=== PATIENT | female | born 1960 | race African-American/Black ===

== ENCOUNTER → 2016-07-14 | Outpatient (CLI) | payer OTHER, BC ==
[~2016-07-14] MED LIST: AMLODIPINE BESY10 MG PO; ANASTROZOLE1 MG; ARIMIDEX PO; ARIMIDEX1 MG PO; ASPIRIN325 PO; BEANO300 UNIT; CARVEDILOL12.5 MG PO; CEFUROXIME250 MG PO; COLACE 100 MG100 MG PO; COLACE100 MG PO; IMODIUM ADVANC1 EAC1 PO; LEVAQUIN 500 M500 M2 PO; LISINOPRIL20 MG PO; LISINOPRIL5 MG PO; NORCO 5-325 TA1 EACH PO; NORVASC 5 MG TAB5 MG PO; ONDANSETRON HCL4 M2 PO; PARICALCITOL2 MCG PO; POTASSIUM20; POTASSIUM20 PO; RENAL CAPS SOFTG1 MG; RENAL CAPS SOFTG1 MG PO; RENALTAB ZN PO; RENVELA800 MG; RENVELA800 MG PO; SENSIPAR 30 MG30 M1 PO; SENSIPAR60 MG; SENSIPAR60 MG PO; VITAMIN D; VITAMIN D400 UNI1 PO; ZEMPLAR1 MCG; ZEMPLAR1 MCG PO; ZESTRIL5 MG; ZINC50 M1; ZINC50 M1 PO; ZOFRAN 4 MG ORAL4 MG PO; ZOFRAN ODT4 MG PO
--- NOTE | ~2016-07-14 | 2DMMODE ---
[facility] [place] [address] 2 D/M-MODE ECHOCARDIOGRAM Name: STEFANIE HARDYFARRAH Room #: REG [facility]#: [id number] Admission: 07/14/16 Attend Phys: Estrada Maki MD Discharge: Date of : 56 Date of Service: 07/14/16 1511 Report #: [id number] THIS REPORT FOR: //name// APPROVED REPORT Study performed: 07/14/2016 13:59:41 EXAM: Comprehensive 2D, Doppler, and color-flow Echocardiogram Patient Location: Out-Patient Room #: Echo 2 Blood Pressure: 144/94 mmHg HR: 93 bpm Other Information Study Quality: Excellent Indications Cardiomyopathy Hypertension/HDD 2D Dimensions RVDd: 30.07 mm LVEF(%): 37.96 (>50%) IVSd: 8.50 (7-11mm) LVOT Diam: 18.39 (18-24mm) LVDd: 56.41 mm PWd: 7.56 (7-11mm) Ascending Ao: 33.62 (22-36mm) LVDs: 45.92 (25-40mm) Aortic Root: 27.05 mm IVC: 18.00 mm Martinez's LVEF: 37.96 % Volumes Left Atrial Volume (Systole) Single Plane 4CH: 87.23 mL Single Plane 2CH: 91.21 mL LA ESV Index: 67.00 mL/m2 Aortic Valve AoV Peak Jimenez.: 1.82 m/s AO Peak Gr.: 13.21 mmHg LVOT Max P.98 mmHg LVOT Max V: 1.00 m/s BRITTANY Vmax: 1.46 cm2 AI Vmax: 4.46 m/s AI Chippewa: 4.76 m/s2 [facility] [employer] [place] [place] [address] 2 D/M-MODE ECHOCARDIOGRAM Name: HARDYSTEFANIEFARRAH Room #: [facility]#: [id number] Admission: 07/14/16 Attend Phys: Estrada Maki MD Discharge: Date of : 56 Date of Service: 07/14/16 1511 Report #: [id number] AI PHT: 271.90 ms Mitral Valve E/A Ratio: 1.0 MV Decel. Time: 129.22 ms MV E Max Jimenez.: 1.46 m/s MV A Jimenez.: 1.42 m/s MV PHT: 37.47 ms IVRT: 83.04 ms Pulmonary Valve PV Peak Jimenez.: 0.91 m/s PV Peak Gr.: 3.32 mmHg Pulmonary Vein P Vein S: 0.75 m/s P Vein A: 0.27 m/s P Vein D: 0.74 m/s P Vein A Dur.: 60.0 msec P Vein S/D Ratio: 1.01 Tricuspid Valve TR Peak Jimenez.: 2.78 m/s RAP Estimate: 5.00 mmHg TR Peak Gr.: 30.88 mmHg Left Ventricle The left ventricle is normal size. There is global hypokinesis of the left ventricle. There is normal left ventricular wall thickness. Left ventricular systolic function is mild to moderately decreased. LVEF is 40-45%. The left ventricular diastolic function is normal. Right Ventricle The right ventricle is normal size. The right ventricular systolic function is normal. Atria Left atrium is dilated. The right atrium size is normal. Aortic Valve The aortic valve is normal in structure. Aortic valve is calcified. Mild aortic regurgitation. There is no aortic valvular stenosis. Mitral Valve The mitral valve is normal in structure. Moderate to severe mitral regurgitation No evidence of mitral valve stenosis. Tricuspid Valve The tricuspid valve is normal in structure. There is no tricuspid [address] [address] 2 D/M-MODE ECHOCARDIOGRAM Name: ROSS HARDY Room #: REG CL [facility]#: [id number] Admission: 07/14/16 Attend Phys: Estrada Maki MD Discharge: Date of : 56 Date of Service: 07/14/16 1511 Report #: [id number] valve stenosis. There is mild tricuspid regurgitation. The right atrial pressure is estimated at 5 mmHg. There is mild pulmonary hypertension. The estimated PAP was 35 mmHg. Pulmonic Valve The pulmonary valve is normal in structure. Trace pulmonic regurgitation. Great Vessels The aortic root is normal in size. IVC is normal in size and collapses >50% with inspiration. Pericardium There is no pericardial effusion. <Conclusion> Left ventricular systolic function is mild to moderately decreased. LVEF is 40-45%. The right ventricle is normal size. Left atrium is dilated. The right atrium size is normal. Mild aortic regurgitation. Moderate to severe mitral regurgitation There is mild tricuspid regurgitation. The right atrial pressure is estimated at 5 mmHg. There is mild pulmonary hypertension. The estimated PAP was 35 mmHg. <ELECTRONICALLY SIGNED> By: Estrada Maki MD 07/14/16 151 151 151 Estrada Maki MD /INF
== END ==
LOC: CV 13:36
DX: I42.9 Cardiomyopathy, unspecified (principal)

== ENCOUNTER 2017-02-22 19:33 | Observation (INO) | payer OTHER, BC ==
[~2017-02-22] VITALS: Ht 152.4 cm; Wt 48.5 kg
--- NOTE | ~2017-02-22 | EKG ---
[place] [address] [facility] [place] [address] ELECTROCARDIOGRAM REPORT Name: STEFANEI HARDYAYLEENMEDINA Room #: 350-P [facility].#: [id number] Admission: 02/22/17 Attend Phys: Tommie Massey DO Discharge: Date of : 56 Report #: [id number] THIS REPORT FOR: //name// [facility] ED Test Date: 2017-02-22 Test Time: 20:09:45 Pat Name: ROSS HARDY Department: Room: 350 Gender: F Flower Maker: DAIJA : 1960 Requested By: Tone Rivers Order Number: [id number] MD: Ambrosio Allred Measurements Intervals Harrison Rate: 105 P: 56 NC: 154 QRS: 3 QRSD: 83 T: 58 QT: 369 QTc: 488 Interpretive Statements Sinus tachycardia Left ventricular hypertrophy Borderline prolonged QT interval Baseline wander in lead(s) V3 No previous ECGs available for comparison Electronically Signed On 02-23-2017 10:11:14 STRAIGHT CUTTER by Ambrosio Allred [email or web address] <ELECTRONICALLY SIGNED> By: Ambrosio Allred MD, [facility] 02/23/17 1011 08 08 Ambrosio Allred MD, FAC /EPI
[2017-02-22 19:35] VITALS: BP 139/99
[2017-02-22 20:17] LABS: RBC 2.25 mil/uL (4.20-5.00)
[2017-02-22 20:20] LABS: MCH 28.2 pg (26.0-34.0); MCV 85.5 fL (80.0-100.0); PLATELET COUNT 282 thou/uL (150-400); RDW 15.9 % (10.5-14.5); WBC 2.9 thou/uL (4.0-11.0)
[2017-02-22 20:23] LABS: CREATININE 11.5 mg/dL (0.6-1.0); POTASSIUM 3.7 mmol/L (3.5-5.1)
[2017-02-22 20:25] LABS: HEMATOCRIT 19.2 % (37.0-47.0); HEMOGLOBIN 6.4 gm/dL (12.0-15.0)
[2017-02-22 20:29] LABS: APTT 26.1 Seconds (24.5-32.8); PROTIME 10.4 Seconds (9.3-11.4)
[2017-02-22 20:32] LABS: ALBUMIN 2.3 g/dL (3.4-5.0); MAGNESIUM 1.2 mg/dL (1.8-2.4); TOTAL BILIRUBIN 0.2 mg/dL (<0.1-1.0); TOTAL PROTEIN 7.3 g/dL (6.4-8.2); TROPONIN-I 0.04 ng/mL (<0.06)
[2017-02-22 20:47] LABS: ABSOLUTE NEUTROPHILS 1.9 thou/uL (1.4-8.2); ANISOCYTOSIS 1+
[2017-02-22 21:04] VITALS: BP 115/79
[2017-02-22 21:25] VITALS: BP 130/77
[2017-02-22 21:26] VITALS: BP 116/62
[2017-02-22 22:23] VITALS: BP 130/78
[2017-02-23] VITALS: BP 124/80
[2017-02-23 01:51] VITALS: BP 130/77; BP 134/77; BP 149/92
[2017-02-23 03:30] VITALS: BP 138/79
[2017-02-23 06:57] LABS: HEMATOCRIT 26.5 % (37.0-47.0); MCH 29.9 pg (26.0-34.0); MCHC 34.3 g/dL (28.0-37.0); MCV 87.3 fL (80.0-100.0); RBC 3.04 mil/uL (4.20-5.00); RDW 14.2 % (10.5-14.5); WBC 3.2 thou/uL (4.0-11.0)
[2017-02-23 06:58] LABS: HEMOGLOBIN 9.1 gm/dL (12.0-15.0)
[2017-02-23 08:20] VITALS: BP 134/85
[2017-02-23 10:59] VITALS: BP 134/85
== END 2017-02-23 12:44 | disposition home or self-care (01) ==
LOC: ER 19:33 → EROBS 20:49 → 3W 21:29
PROVIDERS: Emergency Medicine
DX: I12.0 Hypertensive chronic kidney disease with stage 5 chronic kidney disease or end stage renal disease (principal); N18.6 End stage renal disease; D63.1 Anemia in chronic kidney disease; D72.819 Decreased white blood cell count, unspecified; E83.42 Hypomagnesemia; Z99.2 Dependence on renal dialysis; Z85.3 Personal history of malignant neoplasm of breast; Z87.891 Personal history of nicotine dependence; Z79.899 Other long term (current) drug therapy

== ENCOUNTER 2017-02-27 21:46 | Inpatient (IN) | payer OTHER, BC ==
[~2017-02-27] VITALS: Ht 152.4 cm; Wt 46.3 kg
--- NOTE | ~2017-02-27 | P ---
[facility] [place] [address] PROCEDURE REPORT Name: ROSS HARDY Room #: 438-P ADM IN M.R.#: [id number] Admission: 02/27/17 Attend Phys: Abad Butts Discharge: Date of : 56 Report #: [id number] THIS REPORT FOR: //name// CC: Ricky Butts DATE OF SERVICE: 02/28/2017 BRIEF HISTORY: The patient is a 56-year-old woman with melenic stools and marked anemia requiring transfusion. PREOPERATIVE DIAGNOSIS: Blood loss anemia with melena. POSTOPERATIVE DIAGNOSES: 1. Actively bleeding arteriovenous malformation, second portion of the duodenum. 2. Patchy bulbar duodenitis. 3. Small intermittently seen sliding type hiatus hernia. MEDICATIONS: Deep sedation with propofol per Anesthesia. SPECIMEN: Biopsies of gastritis. ESTIMATED BLOOD LOSS: None related to procedure, but she had an actively bleeding AVM. PROCEDURE: EGD with BICAP cautery of gastric AVM and biopsy of gastritis. FINDINGS: Prior to propofol sedation, procedure of upper endoscopy discussed with the patient as well as potential risks and its complications. She indicates she understands and desires to proceed. DESCRIPTION OF PROCEDURE: With the patient in left lateral decubitus position, the Fuji video endoscope was inserted in the cervical esophagus under direct vision without difficulty. Examination of this organ in its entire length revealed normal esophageal mucosa down to the squamocolumnar junction. Squamocolumnar junction was inspected and noted to be unremarkable. Intermittently, a small 2-cm sliding type hiatus hernia was seen. Scope was advanced to the stomach, was examined on end view as well as retroflexed views. There were some patchy erythema of the antrum, but no ulcers or erosions or blood was seen. Upon retroflexion, no mass lesions were seen. No bleeding was seen in the proximal stomach. The pylorus was normal. The scope was advanced in the duodenal bulb and as the scope was advanced to the distal bulb, there was red blood and clot noted. The scope was advanced down to the third portion of the duodenum where red blood and clot was seen. We then very carefully with [facility] [address] [place] [address] PROCEDURE REPORT Name: ROSS HARDY Room #: 438-P ADM IN M.R.#: [id number] Admission: 02/27/17 Attend Phys: Abad Butts Discharge: Date of : 56 Report #: [id number] multiple insertion and withdrawal of the scope, flushed the duodenum and aspirated contents. After clearing blood and clot, in the second portion of the duodenum, a punctate AVM was seen with oozing of bright red blood. Upon washing this area, no mucosal lesions could be seen. Unfortunately, it continued to ooze and we were able to destroy with a BICAP probe. Once the lesion was treated, there was no further bleeding. We cleared all the blood out and no further blood. No other lesions were seen other than patchy bulbar duodenitis without evidence of bleeding. It was felt the bleeding had been controlled. The scope withdrawn, biopsies obtained of the gastritis. The patient tolerated the procedure well. DISPOSITION: The patient with GI bleeding. Bleeding AVM identified and treated as noted above. We will follow up on biopsies regarding H. pylori. I will continue to monitor hemoglobin and transfuse as needed. In view of her valvular heart disease, it is certainly possible she has additional AVMs in the GI tract. If she has further evidence of bleeding, next procedure will likely be a small bowel capsule study. <ELECTRONICALLY SIGNED> By: Jaquan Sanchez MD 03/01/17 1523 1145 1856 Jaquan Sanchez MD /nt
--- NOTE | ~2017-02-27 | HC ---
[facility] [place] [address] CONSULTATION Name: ROSS HARDY Room #: 438-P ADM IN M.R.#: [id number] Admission: 02/27/17 Attend Phys: Abad Butts Discharge: Date of : 56 Report #: [id number] THIS REPORT FOR: //name// CC: Ricky Butts DATE OF SERVICE: 02/28/2017 REASON FOR CONSULTATION: End-stage renal disease. HISTORY OF PRESENT ILLNESS: The patient is well known to our service, chronic peritoneal dialysis. The patient has been on dialysis for many years. She has had melena over the last several days. Hemoglobin has dropped down to 4.5. She was admitted for further evaluation. Of note, she had a GI bleed last year. She had duodenitis and gastritis. She had EGD and colonoscopy at that time at . PAST MEDICAL HISTORY: Longstanding hypertension. End-stage renal disease, on peritoneal dialysis for many years. She has had difficulty with heart failure, had a MitraClip procedure done at within the last several months as well. She has also had breast cancer, had a left mastectomy, lymph node dissection and has been on treatment for that as well. She also has longstanding hypertension. HOME MEDICATIONS: As listed include amlodipine 10 mg daily, Arimidex 1 mg daily, carvedilol 12.5 mg b.i.d., renal caps, lisinopril 20 mg daily, Renvela 2 with meals t.i.d. She gets Aranesp and iron in the peritoneal dialysis clinic. FAMILY HISTORY: Noncontributory. SOCIAL HISTORY: No cigarettes or alcohol. Currently, she is disabled. PHYSICAL EXAMINATION: GENERAL: This is a reasonably comfortable appearing woman, in no distress. SKIN: Unremarkable. SKELETAL: Well developed, well nourished. HEENT: Extraocular movements are full. Vision intact. Hearing intact. Mucous membranes moist. NECK: Supple, no carotid bruits. CHEST: Clear to auscultation. HEART: Regular. ABDOMEN: Soft and nontender. PD catheter in place. No peripheral edema. ASSESSMENT AND PLAN: 1. Melena. She has a gastrointestinal bleed. Hemoglobin is low. She will get some blood transfusions. She will have an EGD. She is already on Protonix. She is actually on 40 mg twice a day at the time of admission. [address] [address] CONSULTATION Name: ROSS HARDY Room #: 438-P [facility] IN .R.#: [id number] Admission: 02/27/17 Attend Phys: Abad Butts Discharge: Date of : 56 Report #: [id number] 2. End-stage renal disease, on dialysis. I will do one hemodialysis treatment to try to get her through the weekend, orders in CPOE. 3. Status post breast cancer with left mastectomy. 4. Heart failure with recent MitraClip for mitral regurgitation. 5. Longstanding hypertension. 6. Discoid lupus. <ELECTRONICALLY SIGNED> By: Ricky Garvey MD 03/01/17 1609 1033 1304 Ricky Garvey MD /nt
--- NOTE | ~2017-02-27 | HC ---
[facility] [place] [address] CONSULTATION Name: ROSS HARDY Room #: 438-P ADM IN M.R.#: [id number] Admission: 02/27/17 Attend Phys: Abad Butts Discharge: Date of : 56 Report #: [id number] THIS REPORT FOR: //name// CC: Ricky Butts REASON FOR CONSULTATION: The patient is a [id number] with chronic anemia with melanotic stools and further drop in hemoglobin. HISTORY OF PRESENT ILLNESS: This 56-year-old woman has a history of end-stage renal disease thought to be related to high blood pressure. She is currently on hemodialysis for management of her chronic kidney disease. However, she has had chronic anemia and has been on erythropoietin injections and usually receives two injections monthly. It is also noteworthy she had mitral valvular regurgitation and had a procedure at [facility] last November where they put a "clamp" on her mitral valve with regards to regurgitation. This was done with cardiac catheterization. She reports that she feels improved since that procedure. However, she tells me at that time that she was anemic, although she did not have melanotic stools. She reports that she had colonoscopy and upper endoscopy at , but does not know results specifically. The patient was actually an observation patient early this week. She had some dizziness, lightheadedness, weakness and fatigue. She was placed on an observation bed. Her hemoglobin was 6.4. She received transfusion up to 9.1. She felt much improved and was discharged. However a day or two later, which was 2-3 days ago, she started having black stools. She developed dizziness, lightheadedness some, but not loss of consciousness. She reports also last evening she vomited up food, but there was no blood. She denies use of nonsteroidals. She does have a history of reflux disease and reports that she takes pantoprazole for reflux. It is not listed on her medications, but she tells me that she takes it twice daily. She also takes 81 mg baby aspirin daily. In addition, she does not recall having a capsule study at . She was admitted last evening. She received 2 units of blood during the night. She reports that she is feeling improved today. PAST MEDICAL HISTORY: Chronic kidney disease, managed with peritoneal dialysis. She did have hemodialysis at one point in the past, but not at this time. She has had high blood pressure. She has mild decrease in left ventricular function. She has also had a fistula placed. PAST SURGICAL HISTORY: , uterine ablation for benign disease, fistula placement, left mastectomy, lymph node dissection in 08/2011. ALLERGIES: No know drug allergies. [facility] [address] [place] [address] CONSULTATION Name: ROSS HARDY Room #: 438-P [facility] IN M.R.#: [id number] Admission: 02/27/17 Attend Phys: Abad Butts Discharge: Date of : 56 Report #: [id number] CURRENT MEDICATIONS: Listed medicines include Aveeno. She also takes stool softener as needed. Amlodipine 10 mg daily, Arimidex 1 mg daily, Coreg 12.5 mg twice daily, Lisinopril 20 mg daily, ondansetron 4 mg every 6 hours as needed for nausea, Renvela 800 mg 3 times daily, vitamin B complex, also 81 mg aspirin daily. She also reports Protonix 40 mg twice daily. FAMILY HISTORY: No family history of colon cancer. SOCIAL HISTORY: She quit smoking 30 years ago. She infrequently uses alcohol. REVIEW OF SYSTEMS: GENERAL: No change in weight, fever or chills. CENTRAL NERVOUS SYSTEM: Generalized weakness and dizziness, but no focal weakness, numbness, loss of consciousness, seizures or strokes. ENT: No change in vision or hearing. No sores in mouth. She wears dentures. PULMONARY: No cough, pneumonia or tuberculosis. CARDIOVASCULAR: Mitral valvular heart disease, but she has not had coronary disease. She had chest pain in the past, but not recently. GASTROINTESTINAL: Reflux symptoms controlled. Vomiting of food last evening without hematemesis. No dysphagia. She has had some constipation, which is well managed with Colace. GENITOURINARY: Chronic kidney disease with peritoneal dialysis. GYNECOLOGIC: Previous , cervical ablation and mastectomy for breast cancer. MUSCULOSKELETAL: No arthralgias or myalgias. SKIN: She had a lupus rash in the past, but tells me she does not have lupus. PSYCHIATRIC: No depression, anxiety or bipolar illness. ENDOCRINE: Denies diabetes or thyroid problems. HEMATOLOGIC: GI bleeding. Also, breast cancer in the past. PHYSICAL EXAMINATION: GENERAL: Well-developed, well-nourished, woman who is wake, alert and oriented, in no acute distress. VITAL SIGNS: Blood pressure 167/88, pulse of 96. HEENT: Anicteric. Pupils equal and round. Oropharynx is clear. Dentures. NECK: Supple. No thyromegaly. CHEST: Clear. HEART: Regular rate and rhythm. S1 and S2. She does have a very soft murmur. ABDOMEN: Normal bowel sounds. Soft, nontender, without hepatosplenomegaly or masses. She has a peritoneal dialysis catheter in left lower quadrant. RECTAL: Not done at this time. EXTREMITIES: Without cyanosis, clubbing or edema. She has a fistula in the left arm. NEUROLOGIC: Oriented to person, place and time. Moves all 4 extremities well. LABORATORY DATA: White count of 4.8. Hemoglobin on admission was 4.5; she has [facility] [address] [place] [address] CONSULTATION Name: ROSS HARDY Room #: 438-P ADM IN M.R.#: [id number] Admission: 02/27/17 Attend Phys: Abad Butts Discharge: Date of : 56 Report #: [id number] received blood since then but has not had a followup hemoglobin. Platelet count of 220,000. Electrolytes normal. Creatinine of 11.1, BUN of 66, calcium of 9.8. ASSESSMENT: 1. Blood loss anemia with melena. 2. Chronic kidney disease, peritoneal dialysis. 3. High blood pressure. 4. Mitral valvular heart disease. 5. History of breast cancer. 6. Gastroesophageal reflux disease, on proton pump inhibitor. 7. Use of aspirin 81 mg daily. COMMENTS: The patient presents with GI bleeding. She presents with melena. She had a workup at last November, source is not entirely clear. Certainly may need to consider small bowel disease, especially in view of valvular heart disease. RECOMMENDATIONS: 1. Upper endoscopy, we will try to do today if schedule allows. 2. Obtain records from . 3. Likely next test to be M2 capsule study, 4. Consideration of repeating colonoscopy. 5. If source is not easily identifiable, may need to consider nuclear medicine bleeding scan or a CT angiogram for further delineation of her source of bleeding. <ELECTRONICALLY SIGNED> By: Jaquan Sanchez MD 02/28/17 1331 0930 1231 Jaquan Sanchez MD /nt
--- NOTE | ~2017-02-27 | S ---
[facility] [place] [address] SURGICAL PATH RPT PROCEDURE Name: ROSS WEBB Room #: 438-P DIS IN M.R.#: [id number] Admission: 02/27/17 Date of : 56 Discharge: 03/01/17 Report #: [id number] Path Case #: [id number] PATHOLOGY REPORT COLLECTION DATE: 02/28/2017 RECEIVED DATE: 03/02/2017 SUBMITTING PHYS: Dr. Jaquan Sanchez OTHER PHYS: Dr. Ricky Butts SPECIMEN(S) RECEIVED: A.Bx of gastritis * * * * * * * * * * * * FINAL DIAGNOSIS: Gastric mucosa, gastritis, endoscopic biopsy: - Moderate reactive gastropathy. - Negative for intestinal metaplasia or atrophy. - Negative for Helicobacter pylori. (IUV:michael; 03/03/2017) COMMENT: Well-controlled Helicobacter pylori immunohistochemical stain performed on block A1 - negative. (IUV:michael; 03/03/2017) PATHOLOGIST: Wilma Castillo M.D. REPORT ELECTRONICALLY SIGNED BY: Wilma Castillo M.D. DATE/TIME: 03/03/2017 17:20 * * * * * * * * * * * * GROSS PATHOLOGY: Received in formalin labeled "Ross Webb, biopsy of gastritis" and consists of 4 choi mucosal biopsies ranging in size from 0.3 cm to 0.6 cm in greatest dimension. The specimen is totally submitted as A1. (ADDI; 03/02/2017) CLINICAL HISTORY: GI bleed INITIAL CPT CODE(S): A; 74739, 39310 Professional services performed by [facility] at [facility] [address] [place] [address] SURGICAL PATH RPT PROCEDURE Name: ROSS WEBB Room #: 438-P DIS IN M.R.#: [id number] Admission: 02/27/17 Date of : 56 Discharge: 03/01/17 Report #: [id number] Path Case #: [id number] [address] [place] [address] Technical services performed by [facility] at [address] [place] [address], [facility] [address], [place] [address]. [facility] [address] [place] [address] PHONE: [phone] DIRECTOR: Venkat Ariza M.D. * * * END OF REPORT * * *
[2017-02-27 21:51] VITALS: BP 110/72
[2017-02-27 22:37] LABS: MCV 89.3 fL (80.0-100.0)
[2017-02-27 22:39] LABS: ABSOLUTE NEUTROPHILS 3.8 thou/uL (1.4-8.2); BASOPHILS 0.7 % (0.0-2.0); EOSINOPHILS 0.6 % (0.0-3.0); LYMPHOCYTES 12.7 % (24.0-44.0); MCH 30.2 pg (26.0-34.0); MCHC 33.8 g/dL (28.0-37.0); MONOCYTES 6.4 % (1.0-8.0); PLATELET COUNT 220 thou/uL (150-400); POLYS 79.6 % (36.0-66.0); RDW 15.2 % (10.5-14.5); WBC 4.8 thou/uL (4.0-11.0)
[2017-02-27 22:44] LABS: HEMOGLOBIN 4.5 gm/dL (12.0-15.0)
[2017-02-27 22:45] LABS: HEMATOCRIT 13.4 % (37.0-47.0)
[2017-02-27 22:46] LABS: CALCIUM 9.8 mg/dL (8.5-10.1); CREATININE 11.1 mg/dL (0.6-1.0); POTASSIUM 4.1 mmol/L (3.5-5.1)
[2017-02-27 23:55] VITALS: BP 110/72
[2017-02-27 23:56] VITALS: BP 117/78
[2017-02-28] VITALS (7 sets, daily range): BP systolic 116–167; BP diastolic 68–116
[2017-02-28 09:57] LABS: HEMATOCRIT 22.5 % (37.0-47.0); MCH 30.9 pg (26.0-34.0); MCHC 35.3 g/dL (28.0-37.0); MCV 87.7 fL (80.0-100.0); RBC 2.57 mil/uL (4.20-5.00); RDW 14.2 % (10.5-14.5); WBC 4.5 thou/uL (4.0-11.0)
[2017-02-28 09:58] LABS: HEMOGLOBIN 7.9 gm/dL (12.0-15.0)
[2017-02-28 10:06] LABS: POTASSIUM 4.8 mmol/L (3.5-5.1)
[2017-02-28 10:08] LABS: CREATININE 12.1 mg/dL (0.6-1.0)
[2017-02-28 10:23] LABS: % SATURATION 58 % (20-39); IRON 83 ug/dL (50-170); TIBC 143 ug/dL (250-450)
[2017-03-01 04:09] LABS: HEMATOCRIT 20.7 % (37.0-47.0); HEMOGLOBIN 7.5 gm/dL (12.0-15.0); MCH 30.7 pg (26.0-34.0); MCV 85.4 fL (80.0-100.0); RBC 2.42 mil/uL (4.20-5.00); RDW 14.4 % (10.5-14.5); WBC 4.3 thou/uL (4.0-11.0)
[2017-03-01 04:28] LABS: CALCIUM 9.9 mg/dL (8.5-10.1); PHOSPHORUS 2.8 mg/dL (2.5-4.9); POTASSIUM 4.3 mmol/L (3.5-5.1)
[2017-03-01 04:41] VITALS: BP 118/70
[2017-03-01 07:50] VITALS: BP 138/79
[2017-03-01] MEDS ORDERED: PANTOPRAZOLE SO40 M1 PO (10:47)
[2017-03-01 14:07] LABS: HEMATOCRIT 22.8 % (37.0-47.0)
[2017-03-01 15:38] VITALS: BP 112/70
[2017-03-01 16:02] VITALS: BP 138/79
[2017-03-01 16:46] VITALS: BP 112/70
[2017-03-02 13:12] LABS: HEP B SURFACE Ab(ANTI-HBS Reactive (()); HEPATITIS B SURFACE AG Negative (Negative)
== END 2017-03-01 19:01 | disposition home or self-care (01) | DRG 377 ==
LOC: ER 21:46 → 4S 23:32 → EROBS 23:32 → 4S 02-28 00:29
PROVIDERS: Emergency Medicine; Hospitalist; Internal Medicine Nephrology; Nurse Practitioner Family
PROC: 0D598ZZ Destruction of Duodenum, Via Natural or Artificial Opening Endoscopic (ICD-10-PCS; principal; 2017-02-28)
PROC: 0DB68ZX Excision of Stomach, Via Natural or Artificial Opening Endoscopic, Diagnostic (ICD-10-PCS; principal; 2017-02-28)
PROC: 30233N1 Transfusion of Nonautologous Red Blood Cells into Peripheral Vein, Percutaneous Approach (ICD-10-PCS; 2017-02-28)
DX: K31.811 Angiodysplasia of stomach and duodenum with bleeding (principal); N18.6 End stage renal disease; D62 Acute posthemorrhagic anemia; I13.2 Hypertensive heart and chronic kidney disease with heart failure and with stage 5 chronic kidney disease, or end stage renal disease; I05.9 Rheumatic mitral valve disease, unspecified; K21.9 Gastro-esophageal reflux disease without esophagitis; I50.9 Heart failure, unspecified; L93.0 Discoid lupus erythematosus; K44.9 Diaphragmatic hernia without obstruction or gangrene; D63.8 Anemia in other chronic diseases classified elsewhere; K29.71 Gastritis, unspecified, with bleeding; Z79.899 Other long term (current) drug therapy; Z90.12 Acquired absence of left breast and nipple; Z87.891 Personal history of nicotine dependence; Z85.3 Personal history of malignant neoplasm of breast; Z28.21 Immunization not carried out because of patient refusal
CPT/HCPCS: 10100; 32100; 62110; 62900

== ENCOUNTER 2017-05-05 02:03 | Inpatient (IN) | payer OTHER ==
[2017-05-05] VITALS (7 sets, daily range): BP systolic 100–139; BP diastolic 63–88
[~2017-05-05] VITALS: Ht 152.4 cm; Wt 45.4 kg
--- NOTE | ~2017-05-05 | P ---
[facility] [place] [address] PROCEDURE REPORT Name: ROSS HARDY Room #: 422-P [facility] IN M.R.#: [id number] Admission: 05/05/17 Attend Phys: Julio Tanner MD Discharge: 05/09/17 Date of : 56 Report #: [id number] THIS REPORT FOR: //name// CC: Julio Garvey MD BRIEF HISTORY: The patient is a 56-year-old woman who was admitted with weakness and anemia. She had gastrointestinal bleeding in February and was treated for an active bleeding, AVM of the duodenum. PREOPERATIVE DIAGNOSIS: Anemia with history of gastrointestinal bleeding. POSTOPERATIVE DIAGNOSIS: Small sliding type hiatus hernia. MEDICATIONS: Deep sedation with propofol per anesthesia. SPECIMEN: None. ESTIMATED BLOOD LOSS: None. PROCEDURE: EGD. FINDINGS: EGD to the fourth segment duodenum. FINDINGS: Prior to propofol sedation, procedure of upper endoscopy discussed with the patient as well as potential risks and its complications. She indicates she understands and desires that we proceed. DESCRIPTION OF PROCEDURE: With the patient in left lateral decubitus position, Fuji video endoscope was inserted in the cervical esophagus under direct vision without difficulty. Examination of this organ through its length revealed normal esophageal mucosa down the squamocolumnar junction. No ulcers or erosions were seen and only a small hiatus hernia was seen. There was no evidence of bleeding in the esophagus. Scope was advanced in the stomach, was examined on end view as well as retroflexed views. It showed normal appearing gastric mucosa. No blood was seen in the stomach. No ulcers or erosions were seen. The stomach was examined carefully on multiple end views and retroflexed views of the stomach. No AVMs or bleeding lesions or potential bleeding lesions were seen. Pylorus normal. The scope was guided through the duodenum down to the fourth portion of duodenum. As the scope was withdrawn, the mucosa was inspected. No bleeding lesions were seen. Vascular ectasias were not seen. The lesion for blood loss was not identified. The scope was withdrawn. The patient tolerated the procedure well. DISPOSITION: The patient with drop in hemoglobin and recent history of GI bleeding. The patient reports she has not had melanotic stools on this occasion [address] [address] PROCEDURE REPORT Name: ROSS HARDY Room #: 422-P [facility] IN M.R.#: [id number] Admission: 05/05/17 Attend Phys: Julio Tanner MD Discharge: 05/09/17 Date of : 56 Report #: [id number] as she did previously. However, given her history of AVMs, continued gastrointestinal blood loss certainly is a possibility. Small bowel capsule study may be the next consideration. She did have a colonoscopy at a year ago, November and she reports it was negative. Repeat colonoscopy may be a consideration as well. <ELECTRONICALLY SIGNED> By: Jaquan Sanchez MD 05/10/17 1408 1347 1953 Jaquan Sanchez MD /nt
--- NOTE | ~2017-05-05 | HC ---
[facility] [place] [address] CONSULTATION Name: ROSS HARDY Room #: 422-P ADM IN M.R.#: [id number] Admission: 05/05/17 Attend Phys: Julio Tanner MD Discharge: Date of : 56 Report #: [id number] THIS REPORT FOR: //name// CC: Julio Garvey DATE OF SERVICE: 05/06/2017 INFECTIOUS DISEASE CONSULTATION REASON FOR CONSULTATION: I was asked to evaluate concerning fever. HISTORY OF PRESENT ILLNESS: The patient is a 56-year-old with history of end-stage renal disease due to focal segmental glomerulonephritis, longstanding. She has been on peritoneal dialysis initially, then on hemo via left upper extremity AV fistula, now back to peritoneal dialysis. Three days ago, developed acute onset of fever. Had malaise and some myalgias. Initially, no cough, now has noticed a nonproductive cough. She has some discomfort in the substernal chest along with this. No headache, pharyngitis symptoms. No pleuritic chest pain. She has had no travel outside the [place]. Household members have been well. Her PD has been going well with no change in the PD color, and no abdominal pain. No nausea or vomiting. She has had some loose stools since being on antibiotics here. Otherwise, stools have been normal. She micturates a small amount of urine daily. She has discoid lupus with no flareup of her skin lesions. ALLERGIES: None. MEDICATIONS: As noted on APR. She initially received a dose of vancomycin and Zosyn and then was given intraperitoneal ceftazidime. PAST MEDICAL HISTORY: Hypertension, end-stage renal disease, congestive heart failure, breast cancer status post left mastectomy, discoid lupus, left AV fistula, , PD catheter. FAMILY HISTORY: Diabetes, hypertension. SOCIAL HISTORY: Past smoker, no significant alcohol intake. Lives with her . REVIEW OF SYSTEMS: As noted above with no additions. PHYSICAL EXAMINATION: VITAL SIGNS: Afebrile and hemodynamically stable. VITAL SIGNS: Maximum temperature was 101.7 degrees. Yesterday, she had 103.4 degrees. [facility] [address] [place] [address] CONSULTATION Name: ROSS HARDY Room #: 422-P ADM IN M.R.#: [id number] Admission: 05/05/17 Attend Phys: Julio Tanner MD Discharge: Date of : 56 Report #: [id number] HEENT: Unremarkable. NECK: Supple. BREASTS: Left mastectomy noted. SKIN: Otherwise unremarkable. LYMPH: Unremarkable. CHEST: Crackles in the bases with some consolidation in the left base posteriorly. No rub. Loud thrill from her left AV fistula. This is heard up in to her neck and precordium. HEART: Regular. ABDOMEN: Soft, nontender. PD catheter site was dressed and dry. EXTREMITIES: Unremarkable. LABORATORY STUDIES: PD fluid, 13 wbc's, culture negative. Sodium 132, potassium 4.5, bicarbonate 28, creatinine 10.7. Lactate 1.6. Hemoglobin 7, platelet count 291,000, white count 10.6 with 81% segs, 9% lymphs. Urinalysis was positive for protein. Blood cultures are negative to date. Influenza antigen negative. PD culture negative. Chest x-ray, left lower lobe infiltrate. IMPRESSION: A 56-year-old, end-stage renal disease with high grade fever and associated cough with left lower lobe infiltrate. I am suspecting community-acquired pneumonia, possible influenza versus bacterial infection. No evidence of intraabdominal infection at this point. Urinalysis was unremarkable, therefore would doubt cystitis or pyelonephritis. Discoid lupus seems under reasonable control. No evidence of skin or soft tissue infection. Recommend treating for community-acquired pneumonia. We will obtain appropriate laboratory studies for such. Repeat chest x-ray in the a.m. <ELECTRONICALLY SIGNED> By: Tone Hammond MD 05/07/17 0945 [id number] Tone Hammond MD /nt
--- NOTE | ~2017-05-05 | HC ---
[facility] [place] [address] CONSULTATION Name: ROSS HARDY Room #: 422-P ADM IN M.R.#: [id number] Admission: 05/05/17 Attend Phys: Julio Tanner MD Discharge: Date of : 56 Report #: [id number] THIS REPORT FOR: //name// CC: Julio Garvey REASON FOR CONSULTATION: Known end-stage renal disease. REASON FOR PRESENTATION: Fever. HISTORY OF PRESENT ILLNESS: A 56-year-old with past medical history of end-stage renal disease, maintained on peritoneal dialysis; remote history of peritonitis in the past. She presented to the emergency room yesterday after she started to have a temperature of 103.4. She also had some weakness. No abdominal pain. No nausea or vomiting. No cough or hemoptysis. No chest pain or palpitation, but she felt somewhat out of the usual for her. She also had some fogginess of her mental status. She had been doing her dialysis as scheduled. She was treated back in 2016 for peritonitis with no further recurrence. I am being asked to evaluate her end-stage renal disease and continue with her peritoneal dialysis. PAST MEDICAL HISTORY: 1. Hypertension. 2. End-stage renal disease. 3. Heart failure with ejection fractions of around 40%. 4. MitraClip procedure. 5. Breast cancer, status post mastectomy and node dissections. 6. Discoid lupus. 7. Status post left AV fistula. 8. . 9. PD catheter. ALLERGIES: None. FAMILY HISTORY: Hypertension and diabetes mellitus. SOCIAL HISTORY: Former smoker with no drug or alcohol abuse. MEDICATIONS: 1. Currently, the patient is maintained on carvedilol. 2. Amlodipine. 3. Lisinopril. 4. Renagel. 5. . 6. Pantoprazole. REVIEW OF SYSTEMS: [facility] [address] [place] [address] CONSULTATION Name: ROSS HARDY Room #: 422-P ADM IN [facility].#: [id number] Admission: 05/05/17 Attend Phys: Julio Tanner MD Discharge: Date of : 56 Report #: [id number] GENERAL: Significant for fever and weakness. CARDIOVASCULAR: No chest pain or palpitation. PULMONARY: No cough or hemoptysis. GASTROINTESTINAL: No nausea or vomiting. GENITOURINARY: She still makes little urine, but no frequency, no urgency. PHYSICAL EXAMINATION: GENERAL: She is alert and oriented. VITAL SIGNS: Blood pressure is 112/76, pulse rate is 101, and temperature 36.4. HEAD AND NECK: No jugular venous distention, no bruit, no thyromegaly. CHEST: Decreased air entry bilaterally. CARDIOVASCULAR: Regular with no rub. ABDOMEN: Soft, nontender. PD catheter in place. LOWER EXTREMITIES: No edema. UPPER EXTREMITIES AND TRUNK: Diffuse discoid rash. LABORATORY DATA: Reviewed. Hemoglobin is low at 7. Sodium is 132, creatinine is 10.7. Magnesium is 1.4. ASSESSMENT, IMPRESSION, AND PLAN: 1. Fever in a patient with peritoneal dialysis. 2. End-stage renal disease. 3. Discoid lupus. 4. Cardiomyopathy. 5. Status post mitral valve clip. 6. Hypertension. 7. Continue with the usual dialysis. 8. Rule out peritonitis by sending the peritoneal fluid for cell count, differential, Gram stain, culture, and sensitivity. 9. She will receive her first intraperitoneal dose of vancomycin and Fortaz. Based on the fluid analysis, we will decide about further treatment of peritonitis. 10. Rule out sources for her presenting symptoms. <ELECTRONICALLY SIGNED> By: Livia Read MD 05/09/17 0922 [id number] Livia Read MD /nt
[~2017-05-05 02:03] MED LIST changes: +PANTOPRAZOLE SO40 M1 PO
[2017-05-05 02:34] LABS: ABSOLUTE NEUTROPHILS 8.7 thou/uL (1.4-8.2); BASOPHILS 0.6 % (0.0-2.0); HEMATOCRIT 21.5 % (37.0-47.0); LYMPHOCYTES 9.3 % (24.0-44.0); MCH 28.3 pg (26.0-34.0); MCHC 32.6 g/dL (28.0-37.0); MONOCYTES 8.7 % (1.0-8.0); PLATELET COUNT 291 thou/uL (150-400); POLYS 81.4 % (36.0-66.0); RBC 2.47 mil/uL (4.20-5.00); RDW 17.2 % (10.5-14.5); WBC 10.6 thou/uL (4.0-11.0)
[2017-05-05 02:41] LABS: URINE BILIRUBIN NEGATIVE (Negative); URINE BLOOD 1+ (Negative); URINE CLARITY CLEAR; URINE COLOR YELLOW; URINE GLUCOSE-RANDOM* NEGATIVE (Negative); URINE KETONES NEGATIVE (Negative); URINE LEUKOCYTES-REFLEX NEGATIVE (Negative); URINE NITRITE-REFLEX NEGATIVE (Negative); URINE PROTEIN (DIPSTICK) 2+ (Negative); URINE SPECIFIC GRAVITY 1.015 (1.005-1.035); URINE UROBILINOGEN 0.2 E.U./dl (0.2-1.0)
[2017-05-05 02:43] LABS: CALCIUM 9.9 mg/dL (8.5-10.1); CREATININE 10.7 mg/dL (0.6-1.0); POTASSIUM 4.5 mmol/L (3.5-5.1)
[2017-05-05 03:31] LABS: MAGNESIUM 1.4 mg/dL (1.8-2.4); PHOSPHORUS 4.1 mg/dL (2.5-4.9)
[2017-05-05 09:59] LABS: CLARITY HAZY; COLOR LIGHT YELLOW; SOURCE P.DFLUID(abdominal); TOTAL VOLUME 95 mL
[2017-05-05 10:16] LABS: BF NUCLEATED CELLS 13; BF RBC 214
[2017-05-05 11:50] LABS: BF NEUTROPHILS 0
[2017-05-05 11:52] LABS: BF MACROPHAGE 67
[2017-05-06 04:00] VITALS: BP 132/84
[2017-05-06 08:10] VITALS: BP 128/71
[2017-05-06 16:15] VITALS: BP 107/73
[2017-05-06 20:00] VITALS: BP 105/63
[2017-05-07 04:00] VITALS: BP 115/71
[2017-05-07 05:36] LABS: BASOPHILS 0.4 % (0.0-2.0)
[2017-05-07 05:38] LABS: ABSOLUTE NEUTROPHILS 4.8 thou/uL (1.4-8.2); LYMPHOCYTES 9.4 % (24.0-44.0); MCHC 32.6 g/dL (28.0-37.0); MONOCYTES 7.5 % (1.0-8.0); PLATELET COUNT 231 thou/uL (150-400); POLYS 82.7 % (36.0-66.0); RBC 2.08 mil/uL (4.20-5.00); RDW 16.5 % (10.5-14.5); WBC 5.8 thou/uL (4.0-11.0)
[2017-05-07 05:43] LABS: HEMATOCRIT 17.9 % (37.0-47.0); HEMOGLOBIN 5.8 gm/dL (12.0-15.0)
[2017-05-07 05:58] LABS: ALBUMIN 1.5 g/dL (3.4-5.0); CALCIUM 9.5 mg/dL (8.5-10.1); CREATININE 10.5 mg/dL (0.6-1.0); POTASSIUM 3.3 mmol/L (3.5-5.1); TOTAL BILIRUBIN 0.2 mg/dL (<0.1-1.0); TOTAL PROTEIN 6.2 g/dL (6.4-8.2)
[2017-05-07 11:23] VITALS: BP 91/66; BP 92/63
[2017-05-07 21:00] VITALS: BP 91/62
[2017-05-07 22:25] VITALS: BP 101/71; BP 114/66; BP 93/59
[2017-05-08 04:01] VITALS: BP 118/80
[2017-05-08 05:19] LABS: ABSOLUTE NEUTROPHILS 4.4 thou/uL (1.4-8.2); BASOPHILS 0.5 % (0.0-2.0); HEMATOCRIT 25.9 % (37.0-47.0); LYMPHOCYTES 9.4 % (24.0-44.0); MCH 27.8 pg (26.0-34.0); MCHC 33.5 g/dL (28.0-37.0); MCV 82.8 fL (80.0-100.0); MONOCYTES 9.2 % (1.0-8.0); PLATELET COUNT 216 thou/uL (150-400); POLYS 80.9 % (36.0-66.0); RBC 3.13 mil/uL (4.20-5.00); RDW 17.2 % (10.5-14.5); WBC 5.5 thou/uL (4.0-11.0)
[2017-05-08 05:24] LABS: HEMOGLOBIN 8.7 gm/dL (12.0-15.0)
[2017-05-08 08:14] VITALS: BP 129/78
[2017-05-08 16:38] VITALS: BP 135/84
[2017-05-08 22:10] LABS: ADENOVIRUS Negative (Negative); INFLUENZA A Negative (Negative); INFLUENZA B Negative (Negative); METAPNEUMOVIRUS Negative (Negative); PARAINFLUENZA 1 Negative (Negative); PARAINFLUENZA 2 Negative (Negative); PARAINFLUENZA 3 Negative (Negative); RHINOVIRUS Negative (Negative); RSV A Negative (Negative); RSV B Negative (Negative)
[2017-05-08 22:34] VITALS: BP 129/86
[2017-05-09 04:57] VITALS: BP 121/82
[2017-05-09 07:36] VITALS: BP 134/80
[2017-05-09 11:22] VITALS: BP 134/80
== END 2017-05-09 15:02 | disposition home or self-care (01) | DRG 871 ==
LOC: ER 02:03 → 4E 04:25 → EROBS 04:25 → 4E 05:14
PROVIDERS: Emergency Medicine; Hospitalist; Nurse Practitioner Acute Care; Specialist
PROC: 30233N1 Transfusion of Nonautologous Red Blood Cells into Peripheral Vein, Percutaneous Approach (ICD-10-PCS; 2017-05-07)
PROC: 0DJ08ZZ Inspection of Upper Intestinal Tract, Via Natural or Artificial Opening Endoscopic (ICD-10-PCS; principal; 2017-05-08)
DX: A41.9 Sepsis, unspecified organism (principal); N18.6 End stage renal disease; J18.9 Pneumonia, unspecified organism; I13.2 Hypertensive heart and chronic kidney disease with heart failure and with stage 5 chronic kidney disease, or end stage renal disease; I42.9 Cardiomyopathy, unspecified; R65.10 Systemic inflammatory response syndrome (SIRS) of non-infectious origin without acute organ dysfunction; N18.9 Chronic kidney disease, unspecified; L93.0 Discoid lupus erythematosus; I50.9 Heart failure, unspecified; K44.9 Diaphragmatic hernia without obstruction or gangrene; E87.6 Hypokalemia; D63.8 Anemia in other chronic diseases classified elsewhere; B34.9 Viral infection, unspecified; Z90.12 Acquired absence of left breast and nipple; Z79.899 Other long term (current) drug therapy; Z87.891 Personal history of nicotine dependence; Z85.3 Personal history of malignant neoplasm of breast; Z82.49 Family history of ischemic heart disease and other diseases of the circulatory system; Z83.3 Family history of diabetes mellitus
CPT/HCPCS: 10183; 33000; 62110; 62900; 70005

== ENCOUNTER → 2017-09-30 | Outpatient (CLI) | payer OTHER | LOC: RAD 15:28 | DX: Z12.31 Encounter for screening mammogram for malignant neoplasm of breast (principal); I10 Essential (primary) hypertension ==

== ENCOUNTER → 2018-10-18 | Outpatient (CLI) | payer OTHER, BC | LOC: RAD 14:56 | DX: Z12.31 Encounter for screening mammogram for malignant neoplasm of breast (principal) ==